=== PATIENT | male | born 1995 | race African-American/Black ===

== ENCOUNTER 2018-07-25 19:06 | Emergency (ER) | payer OTHER ==
[2018-07-25 19:18] VITALS: BP 143/74
--- NOTE | 2018-07-25 20:08 | ED Physician Documentation ---
PD HPI HEAD INJURY - Stated complaint Stated Complaint: FACE INJURY - Chief complaint Chief Complaint: Heent - History obtained from History obtained from: Patient - History of Present Illness Mechanism of head injury: Blow Timing - onset: Enter time (18:30), Today Pain level now: 4 Location of injury: Other (nose) Quality of pain: Pain Associated symptoms: No: LOC, AMS, Nausea / vomiting, Neck pain Similar symptoms before: Has not had sx before Recently seen: Not recently seen - Additional information Additional information: accidentally elbowed to nose by another player while playing basketball at approximately 6:30 PM tonight. No other injury. C/O nasal pain, swelling. There was epistaxis after injury but this has spontaneously resolved Review of Systems Eyes: denies: Loss of vision, Decreased vision Nose: reports: Epistaxis. denies: Rhinorrhea / runny nose, Congestion, Sinus pressure / pain Neurologic: reports: Head injury. denies: Confused, Altered mental status, Headache, LOC PD PAST MEDICAL HISTORY - Past Medical History Past Medical History: No - Past Surgical History Past Surgical History: No - Allergies Allergies/Adverse Reactions: Allergies Allergy/AdvReac Type Severity Reaction Status Date / Time No Known Drug Allergies Allergy Verified 07/25/18 19:17 - Social History Does the pt smoke?: No Smoking Status: Never smoker Does the pt drink ETOH?: No Does the pt have substance abuse?: No - Immunizations Immunizations are current?: Yes - POLST Patient has POLST: No PD ED PE NORMAL - Vitals Vital signs reviewed: Yes - General General: Alert and oriented X 3, No acute distress, Well developed/nourished - HEENT HEENT: PERRL, EOMI, Pharynx benign PD ED PE EXPANDED - HEENT HEENT: PERRL, EOMI, Other (symmetric nasal swelling with mild tenderness to palpation, no crepitus. trace dried blood in bilateral nares without active bleeding. no septal hematoma bilaterally) Results - Vitals Vitals: Vital Signs - 24 hr 07/25/18 19:05 Temperature 36.4 C L Heart Rate 64 Respiratory 17 Rate Blood Pressure 143/74 H O2 Saturation 100 Oxygen O2 Source Room air PD MEDICAL DECISION MAKING - ED course Complexity details: considered differential, d/w patient Departure - Departure Disposition: 01 Home, Self Care Clinical Impression: Nasal injury Condition: Good Instructions: ED Contusion Nasal Vs Fx No X Ray Follow-Up: LORENA Reyes [Provider Group] (3-5 days )
== END 2018-07-25 20:25 | disposition home or self-care (01) ==
LOC: ED 19:06
DX: S09.92XA Unspecified injury of nose, initial encounter (principal); W51.XXXA Accidental striking against or bumped into by another person, initial encounter; Y93.67 Activity, basketball
CPT/HCPCS: 99282